=== PATIENT | female | born 1960 | race Caucasian/White ===

== ENCOUNTER → 2016-11-28 | Outpatient (CLI) | payer OTHER ==
[2016-11-28 10:41] LABS: CH 29.4; CHCM 31.8; HCT 38.5 % (34.0-46.0); HDW 2.41; HGB 12.7 gm/dL (11.4-16.0); MCH 30.6 pg (25.0-35.0); MCHC 32.9 g/dL (31.0-37.0); Mean Platelet Volume 7.8; RBC 4.14 m/uL (3.80-5.40); RDW 14.2 % (11.5-15.5); WBC 8.1 k/uL (3.8-10.6)
[2016-11-28 11:03] LABS: ALT 47 U/L (9-52); AST 26 U/L (14-36); Alkaline Phosphatase 124 U/L (38-126); Anion Gap 12 mmol/L; Blood Urea Nitrogen 20 mg/dL (7-17); C Reactive Protein 16.4 mg/L (<10.0); Calcium 9.8 mg/dL (8.4-10.2); Carbon Dioxide 26 mmol/L (22-30); Chloride 102 mmol/L (98-107); Glucose 152 mg/dL (74-99); Non-African American GFR(MDRD) >60 (>60 ml/min/1.73 sqM); Potassium 4.5 mmol/L (3.5-5.1); Sodium 140 mmol/L (137-145); Total Bilirubin 0.4 mg/dL (0.2-1.3); Total Protein 7.7 g/dL (6.3-8.2)
[2016-11-28 11:04] LABS: Rheumatoid Factor, Qnt <9 IU/mL (<12)
[2016-11-28 12:55] LABS: Erythrocyte Sedimentation Rate 34 mm/hr (0-20)
[2016-11-28 17:21] LABS: ANA w/Reflex to Titer NEGATIVE (NEGATIVE)
== END | disposition home or self-care (01) ==
LOC: LABWHC1 10:01
PROVIDERS: ATTEND Physician Assistant Medical
DX: E11.9 Type 2 diabetes mellitus without complications (principal); I10 Essential (primary) hypertension
CPT/HCPCS: 36415; 80053; 85027; 85652; 86038; 86060; 86140; 86431

== ENCOUNTER → 2017-07-02 | Outpatient (CLI) | payer OTHER ==
--- NOTE | 2017-07-02 13:39 | MM ---
Reason for exam: screening (asymptomatic). Last mammogram was performed 1 year and 9 months ago. History: Patient is postmenopausal. Physical Findings: A clinical breast exam by your physician is recommended on an annual basis and results should be correlated with mammographic findings. MG Screening Mammo w CAD Bilateral CC and MLO view(s) were taken. Prior study comparison: October 06, 2015, mammogram, performed at [facility]. October 04, 2014, mammogram, performed at [facility]. There are scattered fibroglandular densities. Finding: There are typically benign round calcifications in both breasts. There is no discrete abnormality. ASSESSMENT: Benign, BI-RAD 2 RECOMMENDATION: Routine screening mammogram of both breasts in 1 year.
== END | disposition home or self-care (01) ==
LOC: RADMAMWWP 07:09
PROVIDERS: ATTEND Family Medicine
DX: Z12.31 Encounter for screening mammogram for malignant neoplasm of breast (principal)
CPT/HCPCS: 77067

== ENCOUNTER → 2022-06-27 | Outpatient (CLI) | payer OTHER ==
--- NOTE | 2022-06-27 09:35 | XR ---
EXAMINATION TYPE: XR KUB DATE OF EXAM: 06/27/2022 COMPARISON: NONE HISTORY: Bilateral kidney stones TECHNIQUE: One view abdominal series FINDINGS: The osseous structures are intact. The bowel gas pattern is nonspecific. There is severe retained fe leola debris throughout the colon compatible with severe constipation. This obscures renal outlines wit h no definite suspicious calcifications. Surgical clips in the pelvis. Degenerative change of the spi ne. IMPRESSION: 1. Nonspecific abdomen. Correlate for severe constipation. 2. No definite calcifications are seen overlying the renal outlines which are partially obscured by b owel content.
== END | disposition home or self-care (01) ==
LOC: RADXRMAIN 08:56
PROVIDERS: ATTEND Urology
DX: N20.0 Calculus of kidney (principal)
CPT/HCPCS: 74018

== ENCOUNTER → 2022-07-16 | Outpatient (CLI) | payer OTHER ==
[2022-07-16 09:09] LABS: African American GFR (CKD) >90 (>60 ml/min/1.73 sqM); Blood Urea Nitrogen 20 mg/dL (7-17); Non-African American GFR(CKD) 82 (>60 ml/min/1.73 sqM)
--- NOTE | 2022-07-16 11:45 | CT ---
EXAMINATION TYPE: CT urogram wo/w con CT DLP: 3458.80 mGycm, Automated exposure control for dose reduction was used. DATE OF EXAM: 07/16/2022 10:48 AM COMPARISON: None CLINICAL INDICATION:Female, 61 years old with history of N13.30; LT side hydronephrosis TECHNIQUE: Urogram with imaging of the abdomen and pelvis. Coronal and sagittal reformats were performed. 2D and 3D reconstructions are performed to assist visualization of the urinary tract on a separate workstat ion. Contrast used:100 mL of Isovue 300 with IV Contrast, Oral contrast used: None. FINDINGS: LOWER CHEST: Epicardial fat lymph nodes on the right measuring up to 6 mm in short axis. GENITOURINARY: RIGHT KIDNEY AND URETER: There is a duplicated right collecting system with union of the 2 ureters po ssibly near their origin into the bladder. series 20 image 71. No calculi. Moderate right hydronephro sis. The ureters relatively nondistended. No renal mass or other lesions. No urothelial lesions: no f illing defect, dilation, stricture or wall thickening. LEFT KIDNEY AND URETER: Single collecting system on the left. Mild atrophy changes of the left kidney compared to the right. Multiple calcifications largest measuring 10 x 5 mm. Subcentimeter probable c ysts on the left. Mild dilation of the left calyces without obstructing calculus. No renal mass or ot her lesions. No urothelial lesions: no filling defect , dilation, stricture or wall thickening. URINARY BLADDER: REPRODUCTIVE: Unremarkable. ABDOMEN LIVER: Unremarkable. GALLBLADDER AND BILE DUCTS: The gallbladder surgically absent. PANCREAS: Unremarkable. SPLEEN: Unremarkable. ADRENAL GLANDS: Unremarkable. STOMACH AND BOWEL: . No evidence of bowel obstruction. There is a large stool burden throughout the c olon. PERITONEUM: No evidence of pneumoperitoneum, free fluid, or adenopathy. VASCULATURE: No evidence of aortic aneurysm. There is significant narrowing of the right common iliac artery with dissection in the proximal portion extending at least 2.8 cm of nonvisualization of cont rast within the lumen. There is significant calcifications within this region which does partially li amaury evaluation. MUSCULOSKELETAL: No acute osseous abnormalities LYMPH NODES: No gross evidence for lymphadenopathy. SOFT TISSUE/ABDOMINAL WALL: Small fat-containing umbilical hernia. IMPRESSION: 1. Mild dilation of the left calyces without evidence for obstructive calculus. 2. No evidence for urothelial lesion. 3. 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 The ureters are relatively nondilated and may combine near the origin into the bladder. 4. Nonobstructing left renal calculi. 5. No right renal calculi visualized. 6. The Right common iliac artery appears possibly occluded in its proximal portion. Further evaluati on with CTA pelvis is recommended for further evaluation for patency. 7. Large stool burden throughout the colon.
== END | disposition home or self-care (01) ==
LOC: RADCTMAIN 08:23
PROVIDERS: ATTEND Urology
DX: N13.2 Hydronephrosis with renal and ureteral calculous obstruction (principal); N28.89 Other specified disorders of kidney and ureter
CPT/HCPCS: 82565; 84520; 74178; 36415; 74400; Q9967

== ENCOUNTER → 2023-11-20 | Outpatient (CLI) | payer OTHER ==
[2023-11-20 15:06] VITALS: BP 128/83; PULSE 82; RESP 16; TEMP 98.2
--- NOTE | 2023-11-20 15:38 | P.PROGSL ---
Subjective DATE: 11/20/2023 FOLLOW UP VISIT. Patient with obstructive sleep apnea hypopnea syndrome return to sleep center for follow-up visit. This is first visit after patient received your new BiPAP unit. Information from previous visit have been reviewed. Patient is using PAP equipment every night for the whole night, getting PAP supplies in time. The patient does not have significant problems with the mask, PAP unit and humidification. [place] sleepiness scale is 9, which is borderline. I checked information from BPAP unit. BPAP unit pressure 22/9 cm H2O. Usage is 100% for more then 4 hours, average 8.1 hours per night. Leak is 6 l/m, which is in acceptable range. Apnea Hypopnea Index is 5.6, which is borderline. MEDICATIONS have been reviewed, please see below. During physical exam: GENERAL: A pleasant patient without any distress. VITAL SIGNS: Please see below, weight is 223 lbs. HEENT: PERRLA, EOMI.low position of soft palate, Mallapati 4 . NECK: Supple. No JVD. LUNGS: Clear to percussion and to auscultation. Good air exchange. No wheezing or rhonchi. HEART: S1, S2 regular. ABDOMEN: Soft and nontender. Obese EXTREMITIES: No clubbing or cyanosis. METER MECHANIC: Awake, alert, and oriented x3. No focal deficit. Impressions: 1. Obstructive sleep apnea-hypopnea syndrome. Patient demonstrated great compliance with treatment, benefiting from treatment. 2. Obesity, BMI 44.2, patient increased weight on 15 pounds comparing with previous visit. 3. Diabetes mellitus. 4. History of restless legs on treatment with pramipexole. 5. Hypertension. 6. Hyperlipidemia. 7. Hypothyroidism. 8. Status post tonsillectomy. 9. Status post cholecystectomy. 10. Status post adenoidectomy. I changed parameters of BiPAP to AutoBiPAP with maximal inspiratory pressure 22 and minimal expiratory pressure 9, pressure support 4 cm of water. Plan: 1. Continue using PAP equipment every night for the whole night. 2. Sleep hygiene with regular time in bed for at least 7.5-8 hours 3. PAP unit should stay lower then position of the head. 4. Advised patient to remove all remaining water from humidifier canister daily and make it dry after each usage. Refill canister with fresh distilled water before each usage. 5. Watching and losing weight. 6. Precautions related to driving. No driving if feel any sleepiness. 7. I will maintain prescription for PAP supplies including mask, tube, filters. 8. Follow up visit in 6 months or earlier if patient has any problems. Thank you very much for allowing me to participate in the management of your patient. Papito Lofton MD, PhD, FAASM. Diplomat of [employer], Sleep Medicine Board by [id number] of [facility] [place] cc: Tyrone Castañeda MD, Emily Andrew [facility] Objective - Vital Signs Vital Signs: Vital Signs Temp 98.2 F 11/20/23 15:02 Pulse 82 11/20/23 15:02 Resp 16 11/20/23 15:02 BP 128/83 11/20/23 15:02 Pulse Ox 97 11/20/23 15:02 FiO2 Intake & Output 11/19/23 11/20/23 11/20/23 18:59 06:59 18:59 Weight 101.151 kg Home Medications: Home Medications Medication Instructions Recorded Confirmed Type Atorvastatin [Lipitor] 40 mg PO DAILY 11/20/23 11/20/23 History Losartan [Cozaar] 25 mg PO BID 11/20/23 11/20/23 History Oxybutynin Chloride [oxyBUTYnin 15 mg PO DAILY 11/20/23 11/20/23 History chloride ER] Pramipexole [Mirapex] 0.25 mg PO HS 11/20/23 11/20/23 History metFORMIN HCL 500 mg PO BID 11/20/23 11/20/23 History
== END ==
LOC: 3 N SLEEP 14:55
PROVIDERS: ATTEND Internal Medicine
CPT/HCPCS: 99212